=== PATIENT | female | born 1960 | race Caucasian/White ===

== ENCOUNTER 2019-08-05 16:39 | Inpatient (IN) | payer BC ==
[~2019-08-05] VITALS: Ht 170.2 cm; Wt 77.3 kg
[2019-08-05] MEDS ORDERED: aspirin 81mg tab.chew PO ONE (17:15)
[2019-08-05] MEDS ORDERED: nitroGLYCERIN 0.4mg SUBLingual tab SL PRN ×3 (17:30→21:25)
[2019-08-05 17:37] LABS: BASOPHILS # (AUTO) 0.1 X10'3 (0-0.2); BASOPHILS % (AUTO) 1.2 % (0-1); EOSINOPHILS # (AUTO) 0.2 X10'3 (0-0.9); EOSINOPHILS % (AUTO) 2.5 % (0-6); HEMATOCRIT 43.2 % (35.0-45.0); HEMOGLOBIN 14.5 g/dl (12.0-16.0); LYMPHOCYTES # (AUTO) 2.5 X10'3 (1.1-4.8); LYMPHOCYTES % (AUTO) 26.4 % (21-51); MEAN CORPUSCULAR HEMOGLOBIN 30.9 PG (27.0-31.0); MEAN CORPUSCULAR HGB CONC 33.5 g/dL (33.0-36.5); MEAN CORPUSCULAR VOLUME 92.2 FL (78-98); MONOCYTES # (AUTO) 0.7 X10'3 (0-0.9); MONOCYTES % (AUTO) 7.2 % (2-12); NEUTROPHILS # (AUTO) 5.9 X10'3 (1.8-7.7); NEUTROPHILS % (AUTO) 62.7 % (42-75); PLATELET COUNT 286 X10'3 (140-440); RED BLOOD COUNT 4.69 X10'6 (4.20-5.60); RED CELL DISTRIBUTION WIDTH 13.4 % (11.5-14.5); WHITE BLOOD COUNT 9.3 X10'3 (4.5-11.0)
[2019-08-05 18:06] LABS: ALANINE AMINOTRANSFERASE 27 U/L (12-78); ALBUMIN 4.1 G/DL (3.4-5.0); ALBUMIN/GLOBULIN RATIO 1.1 (1.1-1.5); ALKALINE PHOSPHATASE 71 IU/L (46-116); ANION GAP 8 (8-16); ASPARTATE AMINO TRANSFERASE 14 U/L (10-37); BILIRUBIN,TOTAL 0.3 MG/DL (0.1-1.0); BLOOD UREA NITROGEN 16 MG/DL (7-18); BUN/CREATININE RATIO 24.6 (6.6-38.0); CALCIUM 9.3 MG/DL (8.5-10.1); CHLORIDE 105 MMOL/L (99-107); CREATININE 0.65 MG/DL (0.40-0.90); GLUCOSE 100 MG/DL (70-104); SODIUM 140 MMOL/L (135-145); TOTAL PROTEIN 7.9 G/DL (6.4-8.2); eGFR > 90 ML/MIN
[2019-08-05 18:11] LABS: MAGNESIUM 2.2 MG/DL (1.5-2.4)
[2019-08-05 18:16] LABS: CLARITY,URINE SLIGHTLY CLOUDY (Clear); COLOR,URINE YELLOW (Yellow); GLUCOSE, URINE NEGATIVE (Neg); KETONES,URINE NEGATIVE (Neg); LEUKOCYTE ESTERASE ,URINE NEGATIVE (Neg); NITRITES, URINE NEGATIVE (Neg); OCCULT BLOOD,URINE NEGATIVE (Neg); PROTEIN,URINE NEGATIVE (Neg); UROBILINOGEN,URINE 0.2 E.U/dL (0.2-1.0)
[2019-08-05 18:21] LABS: MUCUS STRANDS FEW /LPF (Neg); SQUAMOUS EPITHELIAL CELL,UR FEW /LPF (FEW); UA COLLECTION TYPE CLN CATCH MIDSTREAM
[2019-08-05 18:22] LABS: BACTERIA,URINE FEW /HPF (Neg); RBC,URINE 0-2 /HPF (0-2); WBC,URINE 0-4 /HPF (0-4)
--- NOTE | 2019-08-05 18:38 | NUR ---
CALLED PHARMACY AND ASKED TO HAVE ONE TIME/GIVE NOW LABETALOL DOSE ORDERED FOR PTS HTN OF 193/103 - ORIGINAL ORDER IS FOR 2000 HRS AND THEN TO BE BID - WILL GIVE DOSE NOW AND HOLD 2000 HRS DOSE AND GET PT BACK ON SCHEDULE IN AM.
[2019-08-05] MEDS ORDERED: labetalol 100mg tablet PO ONE (18:40)
[2019-08-05] MEDS ORDERED: AMLO5TAB PO (18:47)
[2019-08-05] MEDS: labetalol 100mg tablet PO SCH (19:07)
[2019-08-05] MEDS ORDERED: magnesium 4gm in 100ml NS 100 ML IV PRN (19:55)
[2019-08-05] MEDS ORDERED: potassium Cl 20 mEq SR tablet PO PRN ×2 (19:55)
[2019-08-05] MEDS ORDERED: mag hydrox/Alum hydrox/simeth 30ml oral suspension PO PRN (19:55)
[2019-08-05] MEDS ORDERED: morphine 2 MG/ML inj. syringe IV PRN ×2 (19:55)
[2019-08-05] MEDS ORDERED: ondansetron/PF 4mg/2ml inj IV PRN (19:55)
[2019-08-05] MEDS ORDERED: HYDROcodone/acetaminophen 5mg/325mg tablet PO PRN (19:55)
[2019-08-05] MEDS ORDERED: acetaminophen 325mg tablet PO PRN ×2 (19:55)
[2019-08-05] MEDS ORDERED: magnesium hydroxide 30ml (MOM) UD suspension PO PRN (19:55)
[2019-08-05] MEDS ORDERED: magnesium Cl slow-release 64mg tablet PO PRN (19:55)
[2019-08-05] MEDS ORDERED: magnesium 2GM in 50ml NS 50 ML IV PRN (19:55)
[2019-08-05] MEDS ORDERED: potassium CL 10mEq/100ml bag 100 ML IV PRN ×2 (19:55)
[2019-08-05 20:30] VITALS: BP 179/92
--- NOTE | 2019-08-05 20:30 | NUR ---
Patient in room PCU 3013. I have received report from BRET Lerma and had the opportunity to ask questions and assume patient care.
[2019-08-05 21:00] VITALS: BP 162/99
[2019-08-05] MEDS ORDERED: metoprolol tartrate 25mg tablet PO ONE (21:25)
[2019-08-05] MEDS ORDERED: regadenoson 0.4mg/5ml syringe IV ONE (21:25)
[2019-08-05] MEDS ORDERED: metoprolol tartrate 1mg/ml inj IV PRN (21:25)
[2019-08-05] MEDS ORDERED: aminophylline 250mg/10ml inj. IV PRN (21:25)
[2019-08-05 21:30] VITALS: BP 181/94
--- NOTE | 2019-08-05 22:40 | NUR ---
Patient arrived on the unit around 2029 via [facility]. She was able to walk to the bed. Belongings at bedside. Placed on tele 57, MRSA swan collected, HONG complete, 2 RN skin check performed, blood pressure monitored and medications given per MD order. Patient is comfortable at this time and her BP as come down with a systolic of 139. Visitors at bedside, will continue to monitor.
[2019-08-06] VITALS (13 sets, daily range): BP systolic 119–171; BP diastolic 59–88
--- NOTE | 2019-08-06 06:00 | NUR ---
Patient in room PCU 3013. I have received report from Mariann QUEEN and had the opportunity to ask questions and assume patient care.
--- NOTE | 2019-08-06 06:15 | NUR ---
Problems reprioritized. Patient report given, questions answered & plan of care reviewed with BRET Quan .
[2019-08-06 06:20] LABS: ALBUMIN 3.6 G/DL (3.4-5.0); ANION GAP 12 (8-16); BLOOD UREA NITROGEN 18 MG/DL (7-18); BUN/CREATININE RATIO 27.7 (6.6-38.0); CALCIUM 8.7 MG/DL (8.5-10.1); CHLORIDE 108 MMOL/L (99-107); CREATININE 0.65 MG/DL (0.40-0.90); GLUCOSE 93 MG/DL (70-104); MAGNESIUM 2.4 MG/DL (1.5-2.4); POTASSIUM 4.4 MMOL/L (3.5-5.1); SODIUM 143 MMOL/L (135-145); TOTAL CARBON DIOXIDE 22.8 MMOL/L (24-32); eGFR > 90 ML/MIN
--- NOTE | 2019-08-06 06:30 | NUR ---
Patient in room PCU 3013b. I have received report from BRET Waite and had the opportunity to ask questions and assume patient care. Pt resting comfortably, denies any pain or discomfort. All needs met at this time .
[2019-08-06 06:43] LABS: BASOPHILS # (AUTO) 0.1 X10'3 (0-0.2); BASOPHILS % (AUTO) 1.3 % (0-1); EOSINOPHILS # (AUTO) 0.3 X10'3 (0-0.9); EOSINOPHILS % (AUTO) 4.4 % (0-6); HEMATOCRIT 43.8 % (35.0-45.0); HEMOGLOBIN 14.5 g/dl (12.0-16.0); LYMPHOCYTES # (AUTO) 2.4 X10'3 (1.1-4.8); LYMPHOCYTES % (AUTO) 33.5 % (21-51); MEAN CORPUSCULAR HEMOGLOBIN 30.9 PG (27.0-31.0); MEAN CORPUSCULAR HGB CONC 33.2 g/dL (33.0-36.5); MEAN CORPUSCULAR VOLUME 93.2 FL (78-98); MEAN PLATELET VOLUME 9.4 FL (7.4-10.4); MONOCYTES # (AUTO) 0.7 X10'3 (0-0.9); MONOCYTES % (AUTO) 10.3 % (2-12); NEUTROPHILS # (AUTO) 3.6 X10'3 (1.8-7.7); NEUTROPHILS % (AUTO) 50.5 % (42-75); PLATELET COUNT 285 X10'3 (140-440); RED CELL DISTRIBUTION WIDTH 13.4 % (11.5-14.5); WHITE BLOOD COUNT 7.1 X10'3 (4.5-11.0)
[2019-08-06] MEDS ORDERED: K and/or MAG REPLACEMENT MC SCH (08:00)
[2019-08-06] MEDS ORDERED: amLODIPine 5mg tablet PO SCH (08:00)
[2019-08-06] MEDS ORDERED: enoxaparin 40mg/0.4ml syringe SQ SCH (08:00)
[2019-08-06] MEDS ORDERED: aspirin 81mg tablet.DR PO SCH (08:00)
[2019-08-06] MEDS ORDERED: metoprolol tartrate 12.5mg (1/2 tablet) PO SCH (08:00)
[2019-08-06] MEDS ORDERED: LEVO75TA7 PO (09:32)
[2019-08-06] MEDS ORDERED: LISI10TA4 PO (09:32)
[2019-08-06] MEDS: labetalol 100mg tablet PO SCH (11:20)
[2019-08-06] MEDS ORDERED: METO25TA6 PO (11:31)
--- NOTE | 2019-08-06 11:42 | NUR ---
Paged Dr. Cotter Addendum: 08/06/19 at 1142 by Sofia Looney RN PAGER ID: [phone] MESSAGE: Re: [id number] Jocelyne Arias. Pt is requesting work release letter to excuse for this week. Please advise. Thank you, Sofia Kirk [phone]
--- NOTE | 2019-08-06 12:35 | NUR ---
Pt stable for discharge, per MD order. IV d/c'd catheter intact. 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 Education provided to pt on new medication, Metroprol, pt verbalized understanding. All questions and concerns addressed. Rx called into [facility] in [place]. Pt has all belongings. Transported to private vehicle via wheel chair.
== END 2019-08-06 12:35 | disposition home or self-care (01) | DRG 305 ==
LOC: ER 16:40 → PCU 3S 20:41 → CMPBEDREQ 20:56
PROVIDERS: ADMIT Hospitalist; ATTEND Family Medicine
PROC: 4A02XM4 Measurement of Cardiac Total Activity, External Approach (ICD-10-PCS; principal; 2019-08-06)
PROC: 3E033HZ Introduction of Radioactive Substance into Peripheral Vein, Percutaneous Approach (ICD-10-PCS; 2019-08-06)
DX: I16.1 Hypertensive emergency (principal); I24.9 Acute ischemic heart disease, unspecified; I10 Essential (primary) hypertension; Z82.3 Family history of stroke
CPT/HCPCS: 36415; 71045; 78452; 80048; 80053; 81001; 83735; 83880; 84484; 85025; 87081; 93005; 93017; 93306; 99285; A9500; G0378; J0280; J1650; J2785

== ENCOUNTER 2019-10-16 13:09 | Outpatient (CLI) | payer BC ==
[~2019-10-16 13:09] MED LIST: AMLO5TAB PO; LEVO75TA7 PO; LISI10TA4 PO; METO25TA6 PO
== END 2019-10-16 23:59 | disposition home or self-care (01) ==
LOC: CARD DIAG 13:09
PROVIDERS: ATTEND Internal Medicine Cardiovascular Disease
DX: I05.8 Other rheumatic mitral valve diseases (principal); R42 Dizziness and giddiness; I10 Essential (primary) hypertension
CPT/HCPCS: 93306

== ENCOUNTER 2024-04-25 22:58 | Emergency (ER) | payer BC, MEDICAID ==
[~2024-04-25] VITALS: Ht 170.2 cm; Wt 81.0 kg
[~2024-04-25 22:58] MED LIST changes: +LISI10TA27 PO; -LISI10TA4 PO; +LOP25T PO; -METO25TA6 PO
[2024-04-26 02:44] VITALS: BP 158/84; PULSE 78; O2SAT 98
[2024-04-26] MEDS ORDERED: HYDR-3965 PO (02:57)
[2024-04-26] MEDS ORDERED: ONDA8TAB13 PO (02:57)
[2024-04-26 03:02] VITALS: RESP 18
[2024-04-26] MEDS: HYDROcodone/acetaminophen 5mg/325mg tablet PO ONE (03:02)
[2024-04-26] MEDS: ondansetron 4mg rapidly disintigrating tab PO ONE (03:02)
[2024-04-26] MEDS: ketorolac tromethamine 15mg/ml inj. IM ONE (03:02)
[2024-04-26] MEDS: acetaminophen 325mg tablet PO ONE (03:09)
== END 2024-04-26 03:13 | disposition home or self-care (01) ==
LOC: ER 22:59
DX: M25.531 Pain in right wrist (principal); Z79.899 Other long term (current) drug therapy
CPT/HCPCS: 29125; 73110; 96372; 99284; J1885